=== PATIENT | male | born 1995 | race Caucasian/White ===

== ENCOUNTER → 2018-05-26 | Outpatient (CLI) | payer BC ==
--- NOTE | 2018-05-26 15:31 | KCIC ---
MRI of the lumbar spine without contrast 05/26/2018 CLINICAL HISTORY: Low back pain which radiates down the right leg. History of bilateral leg numbness. TECHNIQUE: Unenhanced T1-weighted, T2-weighted and inversion recovery sagittal and T1-weighted and T2-weighted axial images of the lumbar spine were obtained. FINDINGS: Comparison is made to radiographs of the lumbar spine dated 05/23/2018. Minimal S-shaped curvature of the thoracolumbar spine is seen. Degenerative signal changes and loss of height are seen involving the L4-5 discs. Schmorl's node formation are seen within the endplates surrounding all the disks of the lower thoracic and throughout the lumbar spine. The marrow signal of the visualized bony structures is within normal limits. The conus medullaris is normal morphology, position, and signal characteristics. 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 At the L1-2 disc space there is a mild generalized disc bulge. This findings when combine with the narrow AP diameter of the central spinal canal results in very mild central spinal canal stenosis. No neural foraminal stenosis is seen. At the L2-3 disc space there is a mild generalized disc bulge. This finding when combined with the narrow AP diameter of the central spinal canal results in very mild central spinal canal stenosis. At the L3-4 disc space there is a mild generalized disc bulge. Degenerative changes are seen involving the facet joints bilaterally. There is mild ligamentum flavum hypertrophy bilaterally. There is prominence of the posterior epidural fat. These findings when combine with the narrow AP diameter of the central spinal canal result in mild central spinal canal stenosis. No neural foraminal stenosis is seen. At the L4-5 disc space there is a mild generalized disc bulge. Degenerative changes are seen involving the facet joints bilaterally. There is mild ligamentum flavum hypertrophy bilaterally. There is prominence of the posterior epidural fat. These findings when combined with the narrow AP diameter of the central spinal canal result in mild central spinal canal stenosis. No neural foraminal stenosis is seen. At the L5-S1 disc space is a mild generalized disc bulge. Superimposed on this disc bulge is a focal central disc protrusion. This measures 3 mm in AP diameter. Degenerative changes are seen involving the facet joints bilaterally. These findings when combined result in mild central spinal canal stenosis. No neural foraminal stenosis is seen. IMPRESSION: The changes of degenerative disc disease are seen involving the lumbar spine. These findings result in very mild central spinal canal stenosis at L1-2 and L2-3 and mild central spinal canal stenosis at L3-4, L4-5 and L5-S1. No neural foraminal stenosis is seen. Electronically signed by: Steve Sheppard MD (05/26/2018 3:28 PM) [id number]
== END | disposition home or self-care (01) ==
LOC: KCIC MRI 14:41
PROVIDERS: ATTEND Physician Assistant Surgical
DX: M42.05 Juvenile osteochondrosis of spine, thoracolumbar region (principal); M51.36 Other intervertebral disc degeneration, lumbar region; M48.061 Spinal stenosis, lumbar region without neurogenic claudication
CPT/HCPCS: 72148